=== PATIENT | male | born 1955 | race Caucasian/White ===

== ENCOUNTER 2019-07-28 07:59 | Day surgery (SDC) | payer OTHER ==
[2019-07-28] MEDS ORDERED: EPINEPHrine 0.3 MG in Ophthalmic Irrigation Solution 500 ML IRR SCH (09:00)
[2019-07-28] MEDS ORDERED: Phenylephrine 2.5% Ophth Soln 5 ML BOT ONE (09:15)
[2019-07-28] MEDS ORDERED: Cyclopentolate 1% Opth Drop 2 ML BOT ONE (09:15)
[2019-07-28] MEDS ORDERED: Triamcinolone 40 MG/ML VIAL ONE (10:17)
[2019-07-28] MEDS ORDERED: Lidocaine 1% PF 5 ML VIAL ONE (10:17)
[2019-07-28] MEDS ORDERED: Lidocaine 4% PF 5 ML AMP ONE (10:17)
[2019-07-28] MEDS ORDERED: Bupivacaine PF 0.75% SDV 10 ML ONE (10:17)
[2019-07-28] MEDS ORDERED: CEFAZOLIN 1 GM VIAL ONE (10:17)
[2019-07-28] MEDS ORDERED: Maxitrol 0.1% Opth Oint 3.5 GM TUBE ONE (10:17)
[2019-07-28] MEDS ORDERED: PROPOFOL 20 ML ONE (10:52)
[2019-07-28] MEDS ORDERED: Fentanyl 100 MCG/2 ML VIAL ONE (10:52)
[2019-07-28] MEDS ORDERED: Midazolam HCl 2 mg/2 ml Vial ONE (10:52)
--- NOTE | 2019-07-28 13:10 | OP ---
DATE OF PROCEDURE: 07/28/2019 PRINCIPAL PREOPERATIVE DIAGNOSIS: Macula-off rhegmatogenous retinal detachment, right eye. POSTOPERATIVE DIAGNOSIS: Macula-off rhegmatogenous retinal detachment, right eye. PROCEDURES PERFORMED: 1. A 25-gauge pars plana vitrectomy, right eye. 2. Retinal detachment repair, right eye. 3. Endolaser, right eye. 4. 15% SF6 fill, right eye. ESTIMATED BLOOD LOSS: None. SPECIMENS REMOVED: None. COMPLICATIONS: None. ANESTHESIA: MAC with subtenon block. DESCRIPTION OF PROCEDURE: The patient was identified in the preoperative holding area, where the correct eye being the right eye was marked for surgery. The patient was taken to the operating room. MAC anesthesia was induced. The right eye was prepped and draped in the usual sterile fashion for surgery. A wire-clip lid speculum was placed. An inferonasal conjunctival peritomy was fashioned with Chrissy scissors for administration of subtenon block. The block consisted of 1:1 ratio of 4% lidocaine and 0.75% Marcaine. A total of 5 mL was administered. A standard 25-gauge pars plana vitrectomy platform was fashioned with trocars placed approximately 3.5 mm from the limbus. The infusion was noted to be within the vitreous cavity prior to being turned on to infusion pressure of 30 mmHg. The light pipe Micro vitrector introduced the eye under visualization the BIOM viewing system. A macula-off rhegmatogenous retinal detachment was noted from approximately 7 o'clock to 3 o'clock. A horseshoe retinal tear was noted at approximately 12:30. A careful core and peripheral shave vitrectomy were performed with the assistance of scleral depression taking great care to relieve traction off the aforementioned defect. Following vitrectomy, the defect was marked with endo cautery followed by creation of a posterior drainage retinotomy at 12:30. This was opened subsequently with a flute needle. An air-fluid exchange was performed, which allowed for complete flattening of the retina. Endolaser was used to provide barricade around the retinotomy site as well as the horseshoe tear and providing barrier laser from 7 o'clock to 3 o'clock with sparing of the 3 and 9 o'clock meridians. Following laser, the flute needle was reintroduced in the eye to remove any residual subretinal fluid. An air-gas exchange was performed with 15% SF6. The cannulas were sequentially removed and the supratemporal sclerotomy was sutured with 8-0 Vicryl suture. Following suturing, all sclerotomies were noted to be gas tight. Subconjunctival Ancef and Kenalog were injected. The wire-clip lid speculum was removed followed by application of TobraDex ophthalmic ointment and a light patch and shield. The patient tolerated the procedure well, was taken to outpatient recovery area in good condition. Job ID: [id number]
== END 2019-07-28 12:50 | disposition home or self-care (01) ==
LOC: SDC 07:59
PROVIDERS: ATTEND Ophthalmology Retina Specialist
PROC: 085E3ZZ Destruction of Right Retina, Percutaneous Approach (ICD-10-PCS; principal; 2019-07-28)
PROC: 08B43ZZ Excision of Right Vitreous, Percutaneous Approach (ICD-10-PCS; principal; 2019-07-28)
DX: H33.001 Unspecified retinal detachment with retinal break, right eye (principal)
CPT/HCPCS: 67025; J0171; J0690; J2001; J2250; J2704; J3010; J3301; J3490